=== PATIENT | male | born 1980 | race Two or more races ===

== ENCOUNTER 2021-01-19 08:05 | Outpatient (AMBR) | payer BC, MEDICAID, SELFPAY ==
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
--- NOTE | 2021-01-11 09:57 | PT.ODAYNRPT ---
PT Outpatient Daily Note Date of Service: 01/11/21 OP Daily Note Visit Reasons: back pain Outpatient Physical Therapy Treatment Date: 01/11/21 Subjective: Pt mention that his back is the same. Pt still has pain with all activities and walking. Objective: Please see flow chart for list of ther ex performed Assessment: tolerate exercises with minimal pain Plan: Continue with PT Length of Time (minutes) of Treatment: 30 Minutes Office Procedures PT Procedures PT Date of Service: 01/06/21 OP PT Eval Mod Complex 30 minutes: Yes PT Procedures PT Date of Service: 01/11/21 Therapeutic Exercise 30 minutes: Yes
--- NOTE | 2021-01-19 09:01 | PT.ODAYNRPT ---
PT Outpatient Daily Note Date of Service: 01/19/21 OP Daily Note Visit Reasons: back pain Outpatient Physical Therapy Treatment Date: 01/19/21 Subjective: Pt mention that his back is a little better. He was approved of the MRI but not schedule yet. Objective: Please see flow chart for list of ther ex performed Assessment: tolerate exercises with minimal pain Plan: Continue with PT Length of Time (minutes) of Treatment: 30 Minutes Office Procedures PT Procedures PT Date of Service: 01/19/21 Therapeutic Exercise 30 minutes: Yes PT Procedures PT Date of Service: 01/06/21 OP PT Eval Mod Complex 30 minutes: Yes PT Procedures PT Date of Service: 01/11/21 Therapeutic Exercise 30 minutes: Yes
--- NOTE | 2021-02-08 13:31 | PT.ODS1RPT ---
PT OP Progress/Discharge Note Date of Service: 02/08/21 Progress Note/DC Note Progress Note/Discharge Note: DC Note Patient Information Visit Reasons: back pain Service Continue Service or Discharge: Discharge Discharge Date: 02/08/21 Status Assessment: Pt has been seen for Pt has been seen for 3 visits (eval + 2 visits) inconsistently. Pt last treated on 01/19/21 and has no showed 2 appts (01/13, 01/27). Pt has been contact multiple times regarding follow up appts without success. At this time Pt will be d/c from care due to non-compliance per attendance policy. Pt did not meet set goals in therapy, thank you for your referrals Office Procedures PT Treatments PT Date of Service: 01/19/21 Therapeutic Exercise 30 minutes: Yes PT Treatments PT Date of Service: 01/06/21 OP PT Eval Mod Complex 30 minutes: Yes PT Treatments PT Date of Service: 01/11/21 Therapeutic Exercise 30 minutes: Yes
== END 2021-01-19 23:59 | disposition home or self-care (01) ==
PROVIDERS: PCP Registered Nurse Community Health; Referring Provider Registered Nurse Community Health; Visit Provider Registered Nurse Community Health
DX: M54.42 Lumbago with sciatica, left side (principal); M54.41 Lumbago with sciatica, right side; G89.29 Other chronic pain
CPT/HCPCS: 97110; 97162

== ENCOUNTER 2021-05-20 09:17 | Outpatient (AMBR) | payer BC, MEDICAID, SELFPAY ==
--- NOTE | 2021-05-03 10:35 | PT.OIERPT ---
PT OP Initial Eval Patient Information Visit Reasons: Lumbar spine injury Medical Diagnosis: M54.31; M79.2; G90.0; M51.26; M46.96 Treatment Dx #1: Back Pain Treatment Dx #2: L/S Mobility Deficits Start of Care: 05/03/21 Initial Assessment Subjective Pt is a 40 y/o male c/o chronic back pain (10) with intermittent numbness/tingling down the legs. Pt stated that his back pain is getting worse each months. Pt has limitation with prolonged sitting, standing, walking, work duties, lifting, pushing, recreational activities, and performing normal ADLs. Pt is also pending a neurosurgeon consultation. Pt's most recent MRI found multi-level herniated disc. Objective L/S AROM: all motions are WFL except end range extension and right sidebend Hip PROM: all motions are WFL Hip MMTs Glute Med: 3/5 Glute Max: 3/5 Special Test (+) valencia (+) SLR Muscle Length: bilaterally Hs tightness R>L Palpation: TTP L3-L5 facets Assessment Pt demonstrate back pain and mobility deficits consistent with MRI finding of multi-level herniated disc leading to difficulty with ADLs. Pt will attempt physical therapy if pain persist Pt will be refer back to provider for further consultation. 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
--- NOTE | 2021-05-07 12:11 | PT.ODAYNRPT ---
PT Outpatient Daily Note Date of Service: 05/07/21 OP Daily Note Visit Reasons: Lumbar spine injury Outpatient Physical Therapy Treatment Date: 05/07/21 Subjective: Pt mention that his back is hurting more and the same. Objective: Please see flow chart for list of ther ex performed Assessment: tolerate exercises; minimal change in back pain after therapy session Plan: Continue with PT Length of Time (minutes) of Treatment: 30 Minutes Office Procedures PT Treatments PT Date of Service: 05/07/21 Therapeutic Exercise 30 minutes: Yes PT Treatments PT Date of Service: 05/03/21 OP PT Eval Mod Complex 30 minutes: Yes
--- NOTE | 2021-05-20 09:54 | PT.ODAYNRPT ---
PT Outpatient Daily Note Date of Service: 05/20/21 OP Daily Note Visit Reasons: Lumbar spine injury Outpatient Physical Therapy Treatment Date: 05/20/21 Subjective: Pt mention that his back is the same and still hurting. Objective: Please see flow chart for list of ther ex performed Assessment: tolerate exercises with minimal pain Plan: Continue with PT Length of Time (minutes) of Treatment: 30 Minutes Office Procedures PT Treatments PT Date of Service: 05/07/21 Therapeutic Exercise 30 minutes: Yes PT Treatments PT Date of Service: 05/03/21 OP PT Eval Mod Complex 30 minutes: Yes PT Treatments PT Date of Service: 05/20/21 Therapeutic Exercise 30 minutes: Yes
== END 2021-05-21 23:59 | disposition home or self-care (01) ==
PROVIDERS: PCP Registered Nurse Community Health; Referring Provider Registered Nurse Community Health; Visit Provider Registered Nurse Community Health
DX: M54.41 Lumbago with sciatica, right side (principal); G89.29 Other chronic pain; R26.2 Difficulty in walking, not elsewhere classified; R20.0 Anesthesia of skin; R20.2 Paresthesia of skin; M46.96 Unspecified inflammatory spondylopathy, lumbar region
CPT/HCPCS: 97110; 97162

== ENCOUNTER 2021-06-18 10:15 | Outpatient (AMBR) | payer BC, MEDICAID, SELFPAY ==
--- NOTE | 2021-05-25 13:11 | PT.ODAYNRPT ---
PT Outpatient Daily Note Date of Service: 05/25/21 OP Daily Note Visit Reasons: Lumbar spine injury Outpatient Physical Therapy Treatment Date: 05/25/21 Subjective: Pt's back is so so. Not much has change since last treatment session Objective: Please see flow chart for list of ther ex performed Assessment: tolerate exercises with minimal pain; unable to complete last 2 exercises due to needing to leave for work Plan: Continue with PT Length of Time (minutes) of Treatment: 30 Minutes Office Procedures PT Treatments PT Date of Service: 05/25/21 Therapeutic Exercise 30 minutes: Yes
--- NOTE | 2021-05-27 08:47 | PT.ODAYNRPT ---
PT Outpatient Daily Note Date of Service: 05/27/21 OP Daily Note Visit Reasons: Lumbar spine injury Outpatient Physical Therapy Treatment Date: 05/27/21 Subjective: Pt mention that his back is so so not much has changed. Pt continues to have intermittent numbness down the legs. Objective: Please see flow chart for list of ther ex performed Assessment: tolerate exercises with minimal pain Plan: Continue with PT Length of Time (minutes) of Treatment: 30 Minutes Office Procedures PT Treatments PT Date of Service: 05/25/21 Therapeutic Exercise 30 minutes: Yes PT Treatments PT Date of Service: 05/27/21 Therapeutic Exercise 30 minutes: Yes
--- NOTE | 2021-06-18 12:45 | PT.ODS1RPT ---
PT OP Progress/Discharge Note Date of Service: 06/18/21 Progress Note/DC Note Progress Note/Discharge Note: DC Note Patient Information Visit Reasons: Lumbar spine injury Medical Diagnosis: M54.31; M79.2; G90.0 Treatment Dx #1: Back Pain Treatment Dx #2: L/S Mobility Deficits Service Continue Service or Discharge: Discharge Discharge Date: 06/18/21 Status Subjective: Pt mention that his back feels the same and no change in overall symptoms. Due to pain Pt still has limitation with prolonged sitting, standing, chores, work duties, and recreational activities. At this time Pt feels comfortable being release from care with exercises at home. Pt will follow up with provider [facility]. Objective: L/S AROM: all motions are WFL Hip PROM: all motions are WFL Hip MMTs Glute Med: 3/5 Glute Max: 3/5 Special Test (+) valencia (+) SLR Assessment: Pt demonstrate continued back pain with intermittent numbness down the legs leading to difficulty with ADLs. Pt will no longer benefit from physical therapy due to plateau towards goals. Pt was instructed on HEP during his last session and instructed to continue to maintain overall mobility. Pt performed all exercises safely, thank you for your referrals. Plan: D/C home with HEP and follow up with provider [facility] Office Procedures PT Treatments PT Date of Service: 05/25/21 Therapeutic Exercise 30 minutes: Yes PT Treatments PT Date of Service: 05/27/21 Therapeutic Exercise 30 minutes: Yes PT Treatments PT Date of Service: 06/18/21 Therapeutic Exercise 30 minutes: Yes
== END 2021-06-21 23:59 | disposition home or self-care (01) ==
PROVIDERS: PCP Registered Nurse Community Health; Referring Provider Registered Nurse Community Health; Visit Provider Registered Nurse Community Health
DX: M54.31 Sciatica, right side (principal); G89.29 Other chronic pain; R20.0 Anesthesia of skin
CPT/HCPCS: 97110

== ENCOUNTER → 2024-05-14 | Outpatient (CLI) | payer BC, MEDICAID, SELFPAY ==
[2024-05-14 08:19] LABS: Basophils # (Auto) 0.1 Thou/mm3 (0.0-0.2); Basophils % (Auto) 1 % (0-2.5); Eosinophils # (Auto) 0.3 Thou/mm3 (0.0-0.5); Eosinophils % (Auto) 4 % (0-10); Hematocrit 48.3 % (41.0-53.0); Hemoglobin 16.2 g/dL (13.5-16.0); Immature Granulocytes % (Auto) 1 % (0-0); Immature Granulocytes Auto 0.07 Thou/mm3 (0.00-0.00); Lymphocytes # (Auto) 2.5 Thou/mm3 (1.0-4.8); Lymphocytes % (Auto) 34 % (10-50); Mean Corpuscular HGB Conc 33.5 g/dl (31.0-37.0); Mean Corpuscular Hemoglobin 29.1 pg (25.0-35.0); Mean Corpuscular Volume 87 fL (80-100); Monocytes # (Auto) 0.5 Thou/mm3 (0.0-0.8); Monocytes % (Auto) 7 % (0-12); Neutrophils % (Auto) 53 % (37-80); Nucleated Red Blood Cell % 0 /100 WBC (0); Platelet Count 263 Thou/mm3 (140-440); RDW Standard Deviation 40.2 fL (35.1-43.9); Red Blood Count 5.56 Miln/mm3 (4.50-5.90); White Blood Count 7.5 Thou/mm3 (3.8-10.6)
[2024-05-14 08:41] LABS: Glucose Estimated Average 103 mg/dL (80-131); Hemoglobin A1C 5.2 % Hgb (4.8-6.0)
[2024-05-14 08:48] LABS: Alanine Aminotransferase 27 U/L (10-49); Albumin, Serum 4.7 gm/dL (3.5-5.0); Anion Gap 6 (7-16); Aspartate Amino Transferase 10 U/L (0-34); BUN/Creatinine Ratio 13 Ratio (12-20); Bilirubin,Total 0.4 mg/dL (0.3-1.2); Blood Urea Nitrogen 12 mg/dL (9-23); Calcium 9.3 mg/dL (8.3-10.6); Calcium (Corrected) 9.3 mg/dL (8.5-10.1); Carbon Dioxide 29.9 mMol/L (20.0-31.0); Chloride 106 mMol/L (98-107); Creatinine (Component) 0.9 mg/dL (0.6-1.3); Globulin 2.1 gm/dL (2.3-3.5); Glucose 99 mg/dL (74-106); Osmolality,Calculated 282 (275-295); Potassium 4.4 mMol/L (3.4-5.1); Sodium 142 mMol/L (136-145); Total Protein 6.8 gm/dL (5.7-8.2); eGFR > 60 See Note
[2024-05-14 08:49] LABS: Albumin/Globulin Ratio 2.2 (1.2-2.2); Alkaline Phosphatase 90 U/L (46-116); Cardiac Risk Estimate 4.9 RATIO (4.0-6.7); Cholesterol 193 mg/dL (132-200); HDL Cholesterol 39 mg/dL (40-60); LDL Cholesterol,Calculated 130 mg/dL (0-130); Triglycerides 118 mg/dL (30-150)
[2024-05-14 09:27] LABS: Hepatitis C Antibody Non Reactive (Non React)
[2024-05-18 22:06] LABS: Hepatitis B Virus DNA* NOT DETECTED
[2024-05-20 06:26] LABS: Hepatitis B DNA PCR NOT DETECTED Log IU/mL; Measles Antibody (IgG) >300.00 AU/mL; Rubella Antibody (IgG) 4.04 INDEX
== END | disposition home or self-care (01) ==
PROVIDERS: PCP Registered Nurse Community Health; Referring Provider Registered Nurse Community Health; Visit Provider Registered Nurse Community Health
DX: E78.2 Mixed hyperlipidemia (principal); A15.0 Tuberculosis of lung; R74.8 Abnormal levels of other serum enzymes; R73.03 Prediabetes; Z01.84 Encounter for antibody response examination; Z11.59 Encounter for screening for other viral diseases
CPT/HCPCS: 36415; 80053; 80061; 83036; 85025; 86735; 86762; 86765; 86803; 87517

== ENCOUNTER 2024-09-02 08:37 | Emergency (ER) | payer BC, MEDICAID, SELFPAY ==
[2024-09-02 08:50] VITALS: BP 119/80; PULSE 86; RESP 19; TEMP 36.4; O2SAT 96; BMI 30.7
--- NOTE | 2024-09-02 08:51 | XR_ITS ---
Examination: Abdomen sonogram, Limited Date and time of exam: September 02, 2024 1115 hours INDICATIONS: Right upper abdominal pain beginning this morning Technique: Real-time perera scale transabdominal sonographic images of the upper abdomen obtained. Findings: Normal gallbladder Normal common bile duct 0.4 cm Pancreatic head 2.9 cm Liver 17.5 cm fatty infiltration 13 mm x 17 mm left lobe liver cyst Normal hepatopedal portal venous flow Patent IVC 3.9 cm upper pole right renal cyst IMPRESSION: Normal gallbladder Mild hepatomegaly fatty liver
--- NOTE | 2024-09-02 08:51 | EDNOTE_ITS ---
<Statement entered by Ria Garcia MD - 09/02/24 15:15> As co-signing physician, I was present and available for consult prn. I concur with the plan and care as documented by the midlevel provider. ED Abdominal Pain RME/HPI General Chief Complaint: Abdominal Pain Stated complaint: right upper abd. pain since this am Time seen by provider: 09/02/24 09:31 Arrival date/time: 09/02/24 08:37 44-year-old male with no known medical history presents to the emergency room with a chief complaint of right upper quadrant abdominal pain and tenderness since this morning. Source: patient Mode of arrival: ambulatory Limitations: no limitations Related Data Home Medications ?Medication ?Instructions ?Recorded ?Confirmed cyclobenzaprine 10 mg tablet 10 mg PO HS 03/10/2201/12 cholecalciferol (vitamin D3) 25 25 mcg PO QDAY 4 08/28/23 mcg (1,000 unit) capsule (Vitamin D3) Previous Rx's ?Medication ?Instructions ?Recorded diazepam 10 mg tablet 10 mg PO BID PRN muscle spas m #6 03/05/24 tabs lidocaine 5 % topical patch 2 patch topical QDAY #30 e a 03/05/24 (Lidoderm) Allergies Allergy/AdvReac Type Severity Reaction Status Date / Time ibuprofen Allergy Severe Abdominal Verified 09/02/24 08:39 Pain shrimp Allergy Severe Swelling Verified 09/02/24 08:39 of Lip/Tongue/Throat Review of Systems Review of Systems Systems Reviewed: All systems reviewed, normal except as documented Constitutional Constitutional: Reports system reviewed and no additional complaints, except as documented, Denies fatigue, Denies fever(s), Denies headache(s) and Denies weakness Eyes Eyes: Reports system reviewed and no additional complaints, except as documented, Denies blurry vision and Denies change in vision ENT Ears, Nose, Mouth, and Throat: Reports system reviewed and no additional complaints, except as documented, Denies otalgia, Denies headache(s), Denies nasal congestion, Denies throat swelling and Denies vertigo Cardiovascular Cardiovascular: Reports system reviewed and no additional complaints, except as documented, Denies chest pain, Denies dyspnea and Denies dyspnea on exertion Respiratory Respiratory: Reports system reviewed and no additional complaints, except as documented, Denies chest congestion, Denies cough, Denies dyspnea, Denies dyspnea on exertion and Denies wheezing Gastrointestinal Gastrointestinal: Reports system reviewed and no additional complaints, except as documented, Reports abdominal pain, Reports cramping, Reports nausea and Denies vomiting Genitourinary Genitourinary: Reports system reviewed and no additional complaints, except as documented, Denies dysuria and Denies hematuria Musculoskeletal Musculoskeletal: Reports system reviewed and no additional complaints, except as documented and Denies back pain Integumentary/Breasts Skin/Breast: Reports system reviewed and no additional complaints, except as documented and Denies wounds Neurologic Neurologic: Reports system reviewed and no additional complaints, except as documented, Denies confusion, Denies headache(s), Denies lack of coordination, Denies vertigo and Denies weakness Psychiatric Psychiatric: Reports system reviewed and no additional complaints, except as documented, Denies anxiety, Denies confusion, Denies depression, Denies paranoia, Denies suicidal ideation and Denies tactile hallucinations Endocrine Endocrine: Reports system reviewed and no additional complaints, except as documented and Denies fatigue Hematologic/Lymphatic Hematologic/Lymphatic: Reports system reviewed and no additional complaints, except as documented and Denies lymphadenopathy Allergic/Immunologic Allergic/Immunologic: Reports system reviewed and no additional complaints, except as documented, Denies throat swelling, Denies urticaria and Denies wheezing Past Medical History Past Medical History CARDIAC: Positive Hypercholesterolemia; Negative Cardiac Disorders or Congestive Heart Failure RESPIRATORY: Negative Chronic Obstructive Pulmonary Disease (COPD) or Asthma GENITOURINARY: Negative Renal Disease ENDOCRINE: Negative Diabetes Mellitus Type 1 or Diabetes Mellitus Type 2 HEMATOLOGIC: Negative Sickle Cell Disease PSYCHO/SOCIAL: Positive Anxiety Family History FAMILY HISTORY: Negative Family Neurologic Problems, Family Psychiatric Problems, Family Respiratory Disorders, Family Cardiac Disorders, Family Gastrointestinal Problems, Family Cancer, Family Surgery or Family Anesthesia R eaction Social History SMOKING STATUS: Current every day smoker SUBSTANCE USE: does not use ED Exam General Limitations: Present no limitations General appearance: Present alert and in no apparent distress Head Head exam: Present atraumatic Eye Eye exam: Present normal appearance, PERRL and EOMI ENT ENT exam: Present normal exam, normal oropharynx and mucous membranes moist Neck Neck exam: Present normal inspection, full ROM and trachea midline Chest Chest inspection: Present normal inspection and symmetric chest wall rise Respiratory Respiratory exam: Present normal lung sounds bilaterally Cardiovascular Cardiovascular exam: Present regular rate, normal rhythm and normal heart sounds Abdominal Exam Abdominal exam: Present soft, tenderness, guarding, normal bowel sounds and Velez's sign Abdominal tenderness: Present RUQ and moderate Extremities Exam Extremities exam: Present normal inspection and full ROM Back Exam Back exam: Present normal inspection and full ROM Neurological Exam Neurological exam: Present alert, oriented X3 and CN II-XII intact Psychiatric Psychiatric exam: Present normal affect and normal mood Skin Skin exam: Present warm, dry, intact and normal color Course Quality Measures none Orders Category Date Time Status US gall bladder Stat Exams 09/02/24 08:51 Completed CBC Stat Lab 09/02/24 09:05 Completed CMP [Comprehensive Metabolic Panel] Stat Lab 09/02/24 09:05 Completed Lipase Stat Lab 09/02/24 09:05 Completed UA [Urinalysis] Stat Lab 09/02/24 09:10 Completed Urine Culture Stat Lab 09/02/24 09:10 Received Acetaminophen Tab [Tylenol ES Tab] Med 09/02/24 09:09 Discontinued 1,000 mg PO X1 ONE HYDROcodone*/APAP 5/325 [[place] 5/325] Med 09/02/24 08:51 Discontinued 1 tab PO X1 ONE Ondansetron Odt [Zofran Odt] Med 09/02/24 08:51 Discontinued 4 mg PO X1 ONE Vital Signs Vital signs: Vital Signs Temperature 97.5 F 09/02/24 08:50 Pulse Rate 86 09/02/24 08:50 Respiratory Rate 19 09/02/24 08:50 Blood Pressure 119/80 09/02/24 08:50 Pulse Oximetry (%) 96 09/02/24 08:50 Oxygen Delivery Method Room Air 09/02/24 08:50 O2 saturation 96% within normal limits Abdominal Pain MDM MDM Narrative MDM Narrative:: 44-year-old male with no known medical history presents to the emergency room with a chief complaint of right upper quadrant abdominal pain and tenderness since this morning. Patient is hemodynamically stable and in no apparent distress Physical examination shows pain and tenderness to the patient's right upper quadrant with a positive Velez sign. The patients pain also radiates to the epigastric area. Ultrasound of the gallbladder was completed and was negative for any cholelithiasis or cholecystitis. CBC CMP were negative for any leukocytosis Patient was discharged and educated to follow-up with primary care provider in the next 24 to 48 hours and return to the emergency room for any evidence of worsening signs or symptoms Patient data External records reviewed:: [facility] previous records Clinical information provided by:: patient Social determinants that could affect healthcare access:: none Patient has the following chronic illnesses:: No chronic illness How is presenting disease/condition affected by chronic disease/condition?: no chronic disease Evaluation data The following diagnostics were reviewed and interpreted by me:: lab results and radiology exam(s) Lab and/or radiology exams considered but not ordered:: Labs and radiology exams considered and ordered Interpretation Summary: Ultrasound gallbladder-Findings: Normal gallbladder Normal common bile duct 0.4 cm Pancreatic head 2.9 cm Liver 17.5 cm fatty infiltration 13 mm x 17 mm left lobe liver cyst Normal hepatopedal portal venous flow Patent IVC 3.9 cm upper pole right renal cyst IMPRESSION: Normal gallbladder Mild hepatomegaly fatty liver Medications / Prescriptions Medications or Prescriptions considered but not ordered:: Medication given Medication administrations:: Medication Administration History Discontinued Medications Acetaminophen (Acetaminophen 500 Mg Tablet) 1,000 mg PO X1 ONE Stop: 09/02/24 09:10 Last Admin: 09/02/24 09:17 Dose: 1,000 mg Documented By: ZHANG Comments: Medication not scanning, spoke with Radha, pharmacist made her aware, med not scanning on several patients Hydrocodone Bitart/Acetaminophen (Hydrocodone/Apap 5/325 Tablet) 1 tab PO X1 ONE Stop: 09/02/24 08:52 Last Admin: 09/02/24 09:08 Dose: Not Given Documented By: ZHANG Non-Admin Reason: Patient Refused Ondansetron HCl (Ondansetron Odt 4 Mg Tabrap) 4 mg PO X1 ONE; Protocol Stop: 09/02/24 08:52 Last Admin: 09/02/24 09:07 Dose: 4 mg Documented By: ZHANG Medication given Consultations Consultation(s) initiated? (list below): No Diagnosis Differential diagnosis abdominal pain: abdominal pain, gastroenteritis and other (Cholecystitis/cholelithiasis/gastritis) Most likely diagnosis given after review of the tests above:: Gastritis Admission Indicated Admission indicated?: not indicated Admission Request Was there a request for admission?: No Disposition Plan Disposition Plan: Discharge Discharge Attestation Discharge Attestation: The patient and all family members were given an opportunity to ask questions and understood the discharge instructions. Discharge instructions specifically effects, indications for sooner follow up or return to the emergency department, and the expected course of current diagnosis. Patient condition: Stable Discharge Plan Plan Patient Disposition: HOME (Self Care) Disposition Comment: Stable Prescriptions/Referrals Prescriptions/Med Rec: No Action cholecalciferol (vitamin D3) [Vitamin D3] 25 mcg (1,000 unit) capsule 25 mcg PO QDAY cyclobenzaprine 10 mg tablet 10 mg PO HS diazepam 10 mg tablet 10 mg PO BID PRN (Reason: muscle spasm) Qty: 6 0RF lidocaine [Lidoderm] 5 % adhesive patch,medicated 2 patch topical QDAY Qty: 30 0RF Rx Instructions: leave on most painful area for up to 12 hrs Referrals: Daina Miller FNP [Primary Care Provider] - In 1 week Problem List Clinical Impression: Gastritis Patient/Caregiver Discharge Instructions Education Materials: Treating Gastritis, ED Gastritis (Adult) Additional Instructions: Please follow-up with your primary care provider in the next 24 to 48 hours. Your ultrasound of your gallbladder was negative for any acute findings. Your blood work and urinalysis were negative for any acute findings. For any evidence of worsening signs or symptoms return to the emergency room immediately Print Language: Italian Stand Alone Forms: [facility] Award Info., Work/School Release, Patient Portal Info Letter KAREN/CHAVEZ Supervising Physician KAREN/CHAVEZ Supervising Physician: Dr. GARCIA
[2024-09-02] MEDS: ONDANSETRON ODT 4 MG TABRAP PO (09:07)
[2024-09-02] MEDS: ACETAMINOPHEN 500 MG TABLET 1000 MG PO (09:17)
[2024-09-02 09:37] LABS: Collection Type, Urine Clean Catch
[2024-09-02 09:40] LABS: Basophils # (Auto) 0.1 Thou/mm3 (0.0-0.2); Basophils % (Auto) 1 % (0-2.5); Eosinophils # (Auto) 0.2 Thou/mm3 (0.0-0.5); Eosinophils % (Auto) 3 % (0-10); Hematocrit 46.9 % (41.0-53.0); Hemoglobin 15.5 g/dL (13.5-16.0); Immature Granulocytes % (Auto) 1 % (0-0); Immature Granulocytes Auto 0.05 Thou/mm3 (0.00-0.00); Lymphocytes # (Auto) 2.5 Thou/mm3 (1.0-4.8); Lymphocytes % (Auto) 31 % (10-50); Mean Corpuscular Volume 88 fL (80-100); Monocytes # (Auto) 0.6 Thou/mm3 (0.0-0.8); Monocytes % (Auto) 8 % (0-12); Neutrophils # (Auto) 4.5 Thou/mm3 (1.8-7.7); Neutrophils % (Auto) 57 % (37-80); Nucleated Red Blood Cell % 0 /100 WBC (0); Platelet Count 271 Thou/mm3 (140-440); RDW Standard Deviation 41.2 fL (35.1-43.9); Red Blood Count 5.34 Miln/mm3 (4.50-5.90)
[2024-09-02 09:52] LABS: Bilirubin,Urine Negative (Negative); Blood,Urine Negative (Negative); Clarity,Urine Clear (Clear/Hazy); Color,Urine Lt-Yellow (Lt Yel-Yel); Glucose, Urine Negative (Negative); Ketones,Urine Negative (Negative); Leukocyte Esterase,Urine Positive (Negative); Nitrite,Urine Negative (Negative); Protein,Urine Negative (Neg - Trace); RBC,Urine 1 /hpf (0-3); Specific Gravity,Urine 1.023 (1.001-1.035); Squamous Epithelial Cell,Urine 2 /hpf (0-5); Urobilinogen,Urine Negative mg/dL (0.0-1.0); WBC,Urine 11 /hpf (0-5)
[2024-09-02 10:47] LABS: Alanine Aminotransferase 23 U/L (10-49); Albumin, Serum 4.4 gm/dL (3.5-5.0); Alkaline Phosphatase 79 U/L (46-116); Anion Gap 5 (7-16); Aspartate Amino Transferase 26 U/L (0-34); BUN/Creatinine Ratio 10 Ratio (12-20); Blood Urea Nitrogen 9 mg/dL (9-23); Carbon Dioxide 28.3 mMol/L (20.0-31.0); Chloride 108 mMol/L (98-107); Creatinine (Component) 0.9 mg/dL (0.6-1.3); Estimated Creatinine Clearance 128.5 mL/min (>60); Glucose 88 mg/dL (74-106); Lipase 24 U/L (12-53); Osmolality,Calculated 278 (275-295); Potassium 4.1 mMol/L (3.4-5.1); Sodium 141 mMol/L (136-145); eGFR > 60 See Note
[2024-09-02 10:53] VITALS: BP 115/76; PULSE 89; RESP 16; TEMP 36.4; O2SAT 98
[2024-09-02 11:01] LABS: Albumin/Globulin Ratio 1.8 (1.2-2.2); Bilirubin,Total 0.7 mg/dL (0.3-1.2); Globulin 2.5 gm/dL (2.3-3.5); Total Protein 6.9 gm/dL (5.7-8.2)
== END 2024-09-02 14:25 | disposition home or self-care (01) ==
PROVIDERS: Nurse Practitioner Family; Emergency Provider Emergency Medicine; PCP Registered Nurse Community Health
DX: K29.70 Gastritis, unspecified, without bleeding (principal)
CPT/HCPCS: 36415; 76705; 80053; 81001; 83690; 85025; 87086; 99284; Q0162; A9270

== ENCOUNTER 2024-10-14 20:15 | Emergency (ER) | payer BC, MEDICAID, SELFPAY ==
[2024-10-14 20:17] VITALS: BMI 30.8
[2024-10-14 21:12] VITALS: BP 123/75; PULSE 77; RESP 20; TEMP 36.8; O2SAT 98
--- NOTE | 2024-10-14 21:37 | PD.EDBACK ---
ED Back Injury Pain RME/HPI General Chief Complaint: Back Pain/Injury Stated Complaint: LOW BACK PAIN FLAIR UP HX OF Time Seen by Provider: 10/14/24 21:14 Arrival date/time: 10/14/24 20:15 44-year-old male with a history of herniated lumbar disc reports with complaints of lower back pain. Patient states that he is taking gabapentin he took 1 dose of naproxen earlier today with no resolution of symptoms. Patient states that he was simply pushing a stroller when the pain hit in his back he has difficulty with standing and bending forward. He denies any changes in bowel or bladder habits numbness or tingling or decreased range of motion or weakness in the lower extremities. Limitations: no limitations Related Data Home Medications ?Medication ?Instructions ?Recorded ?Confirmed cyclobenzaprine 10 mg tablet 10 mg PO HS 03/10/22 08/28/23 cholecalciferol (vitamin D3) 25 25 mcg PO QDAY 08/28/23 08/28/23 mcg (1,000 unit) capsule (Vitamin D3) Previous Rx's ?Medication ?Instructions ?Recorded diazepam 10 mg tablet 10 mg PO BID PRN muscle spasm #6 03/05/24 tabs lidocaine 5 % topical patch 2 patch topical QDAY #30 ea 03/05/24 (Lidoderm) Allergies Allergy/AdvReac Type Severity Reaction Status Date / Time ibuprofen Allergy Severe Abdominal Verified 10/14/24 20:22 Pain shrimp Allergy Severe Swelling Verified 10/14/24 20:22 of Lip/Tongue/Throat Review of Systems Constitutional Constitutional: Denies chills and Denies fever(s) Gastrointestinal Gastrointestinal: Denies abdominal pain and Denies change in bowel habits Genitourinary Genitourinary: Denies difficulty urinating and Denies hematuria Musculoskeletal Musculoskeletal: Reports back pain, Denies muscle weakness, Denies numbness and Denies tingling Integumentary/Breasts Skin/Breast: Denies unusual bruising and Denies wounds Neurologic Neurologic: Denies numbness and Denies tingling Hematologic/Lymphatic Hematologic/Lymphatic: Denies easy bleeding and Denies easy bruising Past Medical History Past Medical History CARDIAC: Positive Hypercholesterolemia; Negative Cardiac Disorders or Congestive Heart Failure RESPIRATORY: Negative Chronic Obstructive Pulmonary Disease (COPD) or Asthma GENITOURINARY: Negative Renal Disease ENDOCRINE: Negative Diabetes Mellitus Type 1 or Diabetes Mellitus Type 2 HEMATOLOGIC: Negative Sickle Cell Disease PSYCHO/SOCIAL: Positive Anxiety Family History FAMILY HISTORY: Negative Family Neurologic Problems, Family Psychiatric Problems, Family Respiratory Disorders, Family Cardiac Disorders, Family Gastrointestinal Problems, Family Cancer, Family Surgery or Family Anesthesia Reaction Social History SMOKING STATUS: Current some day smoker SUBSTANCE USE: does not use ED Exam General Limitations: Present no limitations General appearance: Present alert and in no apparent distress Abdominal Exam Abdominal exam: Present soft and normal bowel sounds Extremities Exam Extremities exam: Present normal inspection and full ROM Back Exam Back exam: Present normal inspection, full ROM, tenderness (L5/S1 extending along bilateral sciatic nerve to left mid posterior thigh and to buttocks right side,) and straight leg raise (L); Absent straight leg raise (R) Neurological Exam Neurological exam: Present alert, oriented X3 and CN II-XII intact Psychiatric Psychiatric exam: Present normal affect and normal mood Skin Skin exam: Present warm, dry, intact and normal color Course Quality Measures none Orders Category Date Time Status Dexamethasone Inj [Decadron Inj] Med 10/14/24 21:26 Discontinued 10 mg IM X1 ONE methocarbamoL [Robaxin] Med 10/14/24 21:26 Discontinued 500 mg PO X1 ONE Vital Signs Vital signs: Vital Signs Temperature 98.3 F 10/14/24 21:12 Pulse Rate 77 10/14/24 21:12 Respiratory Rate 20 10/14/24 21:12 Blood Pressure 123/75 10/14/24 21:12 Pulse Oximetry (%) 98 10/14/24 21:12 Oxygen Delivery Method Room Air 10/14/24 21:12 Back Pain / Injury Patient data External records reviewed:: None Clinical information provided by:: patient Social determinants that could affect healthcare access:: none Patient has the following chronic illnesses:: herniated lumbar disc How is presenting disease/condition affected by chronic disease/condition?: caused by Evaluation data The following diagnostics were reviewed and interpreted by me:: other (specify) (none) Lab and/or radiology exams considered but not ordered:: none Interpretation Summary: n/a Medications / Prescriptions Medications or Prescriptions considered but not ordered:: none Medication administrations:: Medication Administration History Discontinued Medications Dexamethasone Sodium Phosphate (Dexamethasone Sod Phos Inj 10 Mg/Ml Vial) 10 mg IM X1 ONE Stop: 10/14/24 21:27 Methocarbamol (Methocarbamol 500 Mg Tablet) 500 mg PO X1 ONE Stop: 05/26/25 21:27 as above Consultations Consultation(s) initiated? (list below): No Diagnosis Most likely diagnosis given after review of the tests above:: Lumbar radiculopathy Admission Indicated Admission indicated?: not indicated Admission Request Was there a request for admission?: No Disposition Plan Disposition Plan: Discharge Discharge Attestation Discharge Attestation: The patient and all family members were given an opportunity to ask questions and understood the discharge instructions. Discharge instructions specifically effects, indications for sooner follow up or return to the emergency department, and the expected course of current diagnosis. Patient condition: Stable Discharge Plan Plan Patient Disposition: HOME (Self Care) Prescriptions/Referrals Prescriptions/Med Rec: No Action cholecalciferol (vitamin D3) [Vitamin D3] 25 mcg (1,000 unit) capsule 25 mcg PO QDAY cyclobenzaprine 10 mg tablet 10 mg PO HS diazepam 10 mg tablet 10 mg PO BID PRN (Reason: muscle spasm) Qty: 6 0RF lidocaine [Lidoderm] 5 % adhesive patch,medicated 2 patch topical QDAY Qty: 30 0RF Rx Instructions: leave on most painful area for up to 12 hrs Problem List Clinical Impression: Lumbar radiculopathy Patient/Caregiver Discharge Instructions Discharge Activity: activity as tolerated Education Materials: Back Basics: A Healthy Spine, Back Exercises: Lower Back Stretch Additional Instructions: Doing stretching techniques as discussed in your discharge packet as well as not sitting for long periods of time, but taking short walks, applying ice, use medications as directed and hydrating well will help decrease your pain. Try to avoid running, climbing hopping, jumping, kneeling, or squatting for 5- 7 days, and follow with your primary care provider if symptoms do not improve in 3 to 4 days Print Language: Mohawk Stand Alone Forms: [facility] Award Info., Patient Portal Info Letter
[2024-10-14] MEDS: DEXAMETHASONE SOD PHOS INJ 10 MG/ML VIAL IM (22:53)
[2024-10-14] MEDS: methocarbamoL 500 MG TABLET PO (23:19)
== END 2024-10-14 23:26 | disposition home or self-care (01) ==
LOC: SERX 21:46
PROVIDERS: Emergency Provider Emergency Medicine; PCP Registered Nurse Community Health
DX: M54.16 Radiculopathy, lumbar region (principal)
CPT/HCPCS: 96372; 99283; J1100

== ENCOUNTER → 2024-11-04 | Outpatient (CLI) | payer BC, MEDICAID, SELFPAY ==
--- NOTE | 2024-11-04 09:30 | XR_ITS ---
Examination: Upper GI series with KUB Esophagram standard Fluoroscopy 17 spot fluoroscopic films of the esophagus and stomach Date and time: November 04, 2024 0923 hours INDICATIONS: Abdominal pain constipation 3 weeks. FINDINGS: Tube Winder AP supine abdomen nonobstructive bowel gas pattern Patient swallowed thin barium with 17 spot fluoroscopic films of the esophagus and stomach Are L AP supine abdomen films obtained post procedure Fluoroscopy 0.36 minutes Primary peristaltic esophageal waves noted No constricting esophageal lesion Peristalsis traverses the stomach normally No gastric mass deformity or ulceration Spasm and irritability duodenal bulb ago no duodenal ulcer crater Duodenal sweep unremarkable IMPRESSION: Active peptic disease duodenum
== END | disposition home or self-care (01) ==
LOC: CDIM 08:32
PROVIDERS: Referring Provider Registered Nurse Community Health; Visit Provider Registered Nurse Community Health
DX: K30 Functional dyspepsia (principal)
CPT/HCPCS: 74240; A4649